=== PATIENT | male | born 1970 | race Caucasian/White ===

== ENCOUNTER 2016-12-30 05:50 | Inpatient (IN) | payer SELFPAY ==
--- NOTE | ~2016-12-30 | HP ---
History And Physical [facility] [address] [place]. [address] NAME: MARTHA JONES : 70 STATUS : ADM IN [facility]#: [id number] AGE: 46 ADM/REG DATE : 12/30/16 MR#: [id number] REPORT SERV DATE: 12/30/16 DICTATED BY: TO MARQUEZ DATE: 12/30/16 REPORT STATUS : Draft TRANSCRIBED BY: MODL DATE: 12/30/16 DATE OF ADMISSION: 12/30/2016 CHIEF COMPLAINT: A 46-year-old male traveling through the [facility] from [place] now with back pain with evidence of upper back abscess and new diagnosis diabetes. HISTORY OF PRESENT ILLNESS: The patient lives in [place] who works as a pick up truck driver. He has been apparently taking a route through this region of the country. He states about 2-1/2 weeks ago, he began to develop increasing upper back pain, felt in his muscles and in his skin. He describes it as progressive aching sometimes having a pressure, sensation of fullness and having paroxysms that feel "like a knife." He gets up to an 8/10 severity. He has had a very poor appetite and poor oral intake, other than drinking a lot of water he has excessive thirst and he also describes polyuria. He describes fevers, chills. No night sweats. He does have lightheadedness. No confusion. No other pain complaints. No headache. No chest pain. No abdominal pain. No shortness of breath. No cough. No diarrhea. No nausea or vomiting. REVIEW OF SYSTEMS: Otherwise, a 14-point review of systems was obtained and was negative. PAST MEDICAL HISTORY: Denies any, no previous history of diabetes, no heart disease, no lung disease. PAST SURGICAL HISTORY: Left hand surgery. ALLERGIES: NO KNOWN DRUG ALLERGIES. SOCIAL HISTORY: Works as a pick up truck driver. He is originally from [place]. He smokes cigarettes. Does not drink alcohol. FAMILY HISTORY: Significant for diabetes on his mother's side of the family. CURRENT MEDICATIONS: Currently denies any. PHYSICAL EXAMINATION: VITAL SIGNS: Temperature 97.6, pulse 92, blood pressure 144/92, respiratory rate 21, O2 saturation 92% on room air. GENERAL: A pleasant, cooperative male. He appears ill, but not in any particular distress. HEENT: Pupils are equal, round, and reactive to light. No conjunctival pallor. No scleral icterus. Nares are patent. Oropharynx is clear of obstruction. Dry mucous membranes. History And Physical [address] [address] NAME: MARTHA JONES : 70 STATUS : ADM IN PAT#: [id number] AGE: 46 ADM/REG DATE : 12/30/16 MR#: [id number] REPORT SERV DATE: 12/30/16 DICTATED BY: TO MARQUEZ DATE: 12/30/16 REPORT STATUS : Draft TRANSCRIBED BY: JOSH DATE: 12/30/16 NECK: Trachea midline. No thyromegaly. LYMPH: No cervical lymphadenopathy. No supraclavicular lymphadenopathy. No bilateral axillary lymphadenopathy. RESPIRATORY: Clear to auscultation to bases. No wheezes, rales, or rhonchi. Normal respiratory effort. CARDIOVASCULAR: Regular rate and rhythm. No murmurs, rubs, or gallops. No current extremity edema is appreciated. ABDOMEN: Soft, nontender, nondistended. Normal bowel sounds auscultated throughout. No organomegaly. DERMATOLOGICAL: Warm and dry extremities. No pallor. No cyanosis. The patient's upper back, more to the right hand side shows an area of fluctuance and tenderness. There is no surrounding erythema, though by skin exam, but definitely an area of pain. No heat either. PSYCHIATRIC: Normal affect. Good mood. Alert and oriented x3. LABORATORY DATA: White blood count 14.9, hemoglobin 15, hematocrit 41, platelets 324. Urine drug screen negative. Urinalysis negative for infection. Sodium 133, potassium 5.0, chloride 95, bicarb 26, BUN 28, creatinine 1.2, glucose 711. Serum acetone level is moderate. Albumin 2.3, AST 91, ALT 92, alkaline phosphatase 133, total bilirubin 0.6. ABG demonstrates a pH of 7.44, a PaCO2 of 37, a PaO2 68, and a bicarb of 25 on room air. STUDIES: A CT scan of the chest as well as upper neck abscess measuring about 7.5 cm in greatest dimension. ASSESSMENT AND PLAN: 1. Ketotic state because of new onset diabetes with severe hyperglycemia with positive acetone in the serum with no evidence of actual acidosis. Check hemoglobin A1c. Noted a diagnosis of diabetes. Seen a nursing educator consult. Start the patient initially on insulin drip IV and IV fluids. 2. Sepsis with pulse greater than 90, respiratory rate greater than 20, and white blood count of 14.9. A wound culture was able to be obtained and place on IV antibiotics. 3. Upper back abscess. Surgery consult with Dr. Huddleston was contacted. Place on IV vancomycin, IV Zosyn. 4. Acute kidney injury. Place on IV fluids and monitor. KPL/MODL To Marquez M.D. / [id number] CC: Oswald Snow M.D.
--- NOTE | ~2016-12-30 | DS ---
Discharge Summary [facility] [address] [place]. [address] NAME: MARTHA JONES : 70 STATUS : DIS IN PAT#: [id number] AGE: 46 ADM/REG DATE : 12/30/16 MR#: [id number] REPORT SERV DATE: 01/02/17 DICTATED BY: BLANCHE TREADWELL DATE: 01/01/17 REPORT STATUS : Draft TRANSCRIBED BY: MODL DATE: 01/01/17 ADMISSION DATE: 12/30/2016 DISCHARGE DATE: 01/01/2017 DISCHARGE DIAGNOSES: 1. Diabetes mellitus type 2, uncontrolled, new diagnosis A1c of 15.7. 2. Sepsis due to left upper back soft abscess, methicillin-sensitive Staphylococcus aureus positive. 3. Left upper back soft abscess. 4. Metabolic encephalopathy, resolved. CONSULTATIONS: Surgery, Dr. Kirby Owen, 12/30/2016. IMAGIN. Chest x-ray, 12/30/2016. Impression: Normal single view. 2. CT chest, 12/30/2016. Impression: Developing phlegmon/abscess in the left back region immediately superficial to the paraspinal musculature. LABORATORY DATA: Wound culture on 12/30/2016, methicillin sensitive Staph aureus. HOSPITAL COURSE: Please refer to history and physical dictated by Dr. Todd Cole on 12/30/2016 for complete admission details as well as consultation note by Dr. Owen. This patient is a 46-year-old gentleman who was driving through [facility] from [place], presented with increased back pain with evidence of upper back abscess, new diagnosis of diabetes. Imaging was obtained which is noted above. 1. Diabetes mellitus type 2, uncontrolled, new diagnosis, A1c of 15.7. The patient was admitted to the hospital. Diabetes education was obtained at this time. The patient is on Levemir/NovoLog/Glucophage. Continues to be on a sliding scale insulin level 2. The patient will be provided a prescription for above medications. He states, he will follow up with his primary care. Instructions have been given as well as a meter for the patient to monitor blood sugars and log to review with primary care. 2. Sepsis due to left upper back soft abscess. The patient was noted to have pulse of 90, respirations greater than 20. White blood cell count upon admission 14.9. Cultures were obtained. IV antibiotics were initiated and vancomycin and Zosyn. Cultures did return MSSA positive. The patient was then changed to Duricef p.o. 1000 mg p.o. twice daily. White count at this time is 10.8; respirations are 18, pulse is 79. 3. Left upper back soft tissue abscess. As noted above the patient had complaints of upper back pain. Imaging was obtained. Surgical consult was also obtained. The patient was evaluated and taken to surgery by Dr. Owen on 12/30/2016. At that time, he underwent an incision and drainage of left upper back. Care has been discussed with the patient regarding wound care. The patient did state an understanding. He will follow up with his primary care in one to two weeks. 4. Metabolic encephalopathy. The patient was confused upon arrival, this did clear within 24 hours. The patient is oriented to person, place, and time at this time. Discharge Summary [address] [address] NAME: MARTHA JONES : 70 STATUS : DIS IN [facility]#: [id number] AGE: 46 ADM/REG DATE : 12/30/16 MR#: [id number] REPORT SERV DATE: 01/02/17 DICTATED BY: BLANCHE TREADWELL DATE: 01/01/17 REPORT STATUS : Draft TRANSCRIBED BY: JOSH DATE: 01/01/17 DISCHARGE PLANNING: The patient will be discharged to return home. Medications will be provided. He has been advised on wound care. He will follow up with primary care physician in one week. DISCHARGE MEDICATIONS: 1. Duricef 1000 mg one p.o. twice daily. 2. NovoLog sliding scale level #2. 3. NovoLog 7 units subcu with meals. 4. Glucophage 1000 mg p.o. before breakfast and supper. 5. Levemir 20 units subcu twice daily. This discharge took greater than 30 minutes. /JOSH Blanche Treadwell NP / [id number] CC: Oswald Snow M.D.
--- NOTE | ~2016-12-30 | CN ---
Consultation Report [facility] [address] [place]. [address] NAME: MARTHA JONES : 70 STATUS : ADM IN [facility]#: [id number] AGE: 46 ADM/REG DATE : 12/30/16 MR#: [id number] REPORT SERV DATE: 12/30/16 DICTATED BY: KIRBY OWEN DATE: 12/30/16 REPORT STATUS : Draft TRANSCRIBED BY: MODL DATE: 12/30/16 SURGICAL CONSULTATION NOTE DATE OF CONSULTATION: 12/30/2016 REASON FOR CONSULTATION: Consultations requested regarding back abscess. 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 He is from [place]. He was found by the police wandering the streets. Initially thought that he was intoxicated. The patient was finally able to tell them that he had diabetes, he was quite altered, and was taken to the emergency room for further evaluation and management. There he was found to be septic with a white count of 14.9. He was febrile. He was tachycardic. He has a back abscess. Surgery was consulted for evaluation and management of the abscess. REVIEW OF SYSTEMS: Unable to assess. PAST MEDICAL HISTORY: Diabetes. Otherwise, unable to assess. MEDICATIONS: Unable to assess. ALLERGIES: UNABLE TO ASSESS. PAST SURGICAL HISTORY: Unable to assess. FAMILY HISTORY: Unable to assess. SOCIAL HISTORY: The patient is from [place]. Wallisian may not be his first language. He is a box truck owner operator. PHYSICAL EXAMINATION: VITAL SIGNS: Temperature is 102.2, heart rate 109, blood pressure 149/74. GENERAL: The patient is altered. He is lethargic. He is only able to answer simple questions and he answers incompletely. HEENT: Normocephalic, atraumatic. Nasopharynx and oropharynx are clear. NECK: Supple. LUNGS: Clear to auscultation. Respirations are nonlabored. HEART: Regular rate and rhythm. ABDOMEN: Obese. SKIN: He has a large abscess in his left mid back. It is draining purulent material. The area of induration is approximately 8 to 10 cm in diameter. LABORATORY DATA: Were reviewed. Of note, potassium is 5. White count 14.9, hematocrit is 41. Glucose was 711 at 3 o'clock in the morning. Consultation Report [facility] [address] [address] NAME: MARTHA JONES : 70 STATUS : ADM IN [facility]#: [id number] AGE: 46 ADM/REG DATE : 12/30/16 MR#: [id number] REPORT SERV DATE: 12/30/16 DICTATED BY: KIRBY OWEN DATE: 12/30/16 REPORT STATUS : Draft TRANSCRIBED BY: MODL DATE: 12/30/16 ASSESSMENT AND PLAN: Mr. Jones is a 46-year-old man with hyperosmolar state and hyperglycemia, sepsis, and a back abscess. Additionally, he has metabolic encephalopathy and he is altered. He will need management of his abscess. He will undergo incision and drainage of this in the operating room this afternoon. This was explained to the patient of unclear about his level of comprehension at this time. It is probably minimal. Assessment and plan has been discussed with the attending physician, Dr. Owen, who is in agreement at this time. DICTATED BY: Ifrah Ronquillo MD [facility]/JOSH Kirby Owen M.D. / [id number] CC: Kirby Owen M.D.
--- NOTE | ~2016-12-30 | OP ---
Record Of Operation [facility] [address] [place]. [address] NAME: MARTHA JONES : 70 STATUS : ADM IN [facility]#: [id number] AGE: 46 ADM/REG DATE : 12/30/16 MR#: [id number] REPORT SERV DATE: 12/30/16 DICTATED BY: KIRBY OWEN DATE: 12/30/16 REPORT STATUS : Draft TRANSCRIBED BY: MODL DATE: 12/30/16 DATE OF PROCEDURE: 12/30/2016 SURGEON: Kirby Owen M.D. RESIDENT: Ifrah Ronquillo MD. PREOPERATIVE DIAGNOSES: 1. Sepsis. 2. Left upper back abscess. POSTOPERATIVE DIAGNOSES: 1. Sepsis. 2. Left upper back abscess. PROCEDURE: Incision and drainage of left upper back abscess. ANESTHESIA: General endotracheal anesthesia. IV FLUIDS: 700. ESTIMATED BLOOD LOSS: 5. URINE OUTPUT: 550. SPECIMEN: Abscess drainage for culture and sensitivity. COMPLICATIONS: None apparent. INDICATIONS: Mr. Jones is a gentleman who presented to the ER secondary to altered mental status. He was found to be septic. He had a draining lesion on his left upper back. He was offered incision and drainage of this secondary to altered mental status, so we proceeded under emergent consent. PROCEDURE IN DETAIL: The patient was brought to the operating room. After ensuring the appropriate documents were secured on the chart, he was intubated on the stretcher and then placed prone on the operative table. He was monitored by the Anesthesia Service throughout the procedure. The upper back was prepped and draped in the usual sterile fashion and an appropriate time-out procedure was completed wherein the patient, procedure, site, positioning, allergies, equipment, and administration of antibiotics were verified prior to beginning. We made an incision along Teresita line over the area that was draining. A pocket of pus was encountered. This was drained. It seemed to be coming from an inclusion cyst, the wall of which was removed from the surrounding tissues. There were several projections of pus that were seeping into the surrounding tissues. This was irrigated and packed with iodoform gauze. Dressing was applied and the procedure was terminated. Sedation was stopped. The patient was transferred back to the stretcher once sedation was stopped and Record Of Operation [facility] [address] [place]. [address] NAME: MARTHA JONES : 70 STATUS : ADM IN PAT#: [id number] AGE: 46 ADM/REG DATE : 12/30/16 MR#: [id number] REPORT SERV DATE: 12/30/16 DICTATED BY: KIRBY OWEN DATE: 12/30/16 REPORT STATUS : Draft TRANSCRIBED BY: JOSH DATE: 12/30/16 the patient was extubated and taken to postanesthesia care unit in good condition after having tolerated the procedure well. Dr. Owen was present and scrubbed for the entirety of the surgical procedure. All counts of needles, sponges, and instruments were correct at the end of the case. DICTATED BY: MD RUBEN Cuadra/JOSH Kirby Owen M.D. / [id number] CC: Oswald Snow M.D.
[2016-12-30 02:46] LABS: BASOPHILS 0.4 %; BASOPHILS ABSOLUTE 0.06 10/3/uL (0.0-0.16); EOSINOPHILS 1.9 %; EOSINOPHILS ABSOLUTE 0.29 10/3/uL (0.0-0.53); HEMATOCRIT 41.6 % (40.0-51.0); HEMOGLOBIN 15.7 g/dL (13.6-17.8); IMMATURE GRANULOCYTES 2.7 %; LYMPHOCYTES 15.1 %; LYMPHOCYTES ABSOLUTE 2.25 10/3/uL (0.67-4.30); MEAN CORPUS HGB CONC 37.7 g/dL (32.0-36.0); MEAN CORPUSCULAR HEMOGLOB 33.8 pg (26.0-34.0); MEAN CORPUSCULAR VOLUME 89.5 fL (80-100); MEAN PLATELET VOLUME 11.4 fL (9.2-13.0); MONOCYTES 7.1 %; MONOCYTES ABSOLUTE 1.05 10/3/uL (0.21-1.20); NEUTROPHILS 72.8 %; NEUTROPHILS ABSOLUTE 10.83 10/3/uL (2.02-8.40); PLATELET COUNT 324 10/3/uL (150-400); RBC DISTRIBUTION WIDTH 13.3 % (12.0-16.0); RED CELL COUNT 4.65 10/6/uL (4.7-6.1); WHITE BLOOD CELLS 14.9 10/3/uL (4.5-10.5)
[2016-12-30 02:47] LABS: ASCORBIC ACID (UR NOT ORDER) NEG (NEG); BILIRUBIN, URINE NEGATIVE (NEG); ER URINALYSIS TAT 0 Hrs 00 Mins; KETONE, URINE NEGATIVE (NEG); LEUKOCYTE ESTERASE(NOT OR NEG (NEG); NITRITE (URINE) NEG (NEG); WBC (NOT ORDERED) (RFLEX) 1 (0-5)
[2016-12-30 02:48] LABS: MANUAL DIFF NO %
[2016-12-30 02:58] LABS: AMPHETAMINES (NOT ORD) NEG (NEG); BARBITURATES (NOT ORDERED NEG (NEG); BENZODIAZEPINES (NOT ORD) NEG (NEG); CANNABINOIDS (THC) NEG (NEG); COCAINE (NOT ORDERED) NEG (NEG); OPIATES NEG (NEG); PHENCYCLIDINE(PCP) NEG (NEG); TRICYCLICS NEG (NEG)
[2016-12-30 03:06] LABS: ATYPICAL LYMPH FEW (3-5%) (0-5%); BAND NEUTROPHILS 3 %; EOSINOPHILS 3 %; EOSINOPHILS ABSOLUTE (CALC) 0.45 10/3/uL (0.0-0.53); ER DIFF TAT 0 Hrs 24 Mins; LYMPHOCYTES 18 %; LYMPHOCYTES ABSOLUTE (CALC) 2.68 10/3/uL (0.67-4.30); MONOCYTES 9 %; MONOCYTES ABSOLUTE (CALC) 1.34 10/3/uL (0.21-1.20); NEUTROPHILS ABSOLUTE (CALC) 10.43 10/3/uL (2.02-8.40); PLATELET ESTIMATE ADQ (ADEQUATE); RBC MORPHOLOGY NORM (NORMAL); SEGMENTED NEUTROPHIL (0) 67 %; TOTAL NUCLEATED CELLS 100
[2016-12-30 03:41] LABS: ACETONE MODERATE
[2016-12-30 04:13] LABS: A/G RATIO 0.5 (0.7-1.9); ALBUMIN 2.3 G/DL (3.5-5.0); ALKALINE PHOSPHATASE 133 U/L (45-117); BUN (BLOOD UREA NITROGEN) 28 MG/DL (6-23); CALCIUM, SERUM 9.3 MG/DL (8.5-10.4); CHLORIDE, SERUM 95 MMOL/L (96-112); CO2 (CARBON DIOXIDE) 26 MMOL/L (24-34); CREATININE 1.26 MG/DL (0.70-1.30); GFR AFRICAN AMERICAN 79 ML/MIN (>=60); GFR NON AFRICAN AMERICAN 68 ML/MIN (>=60); GLOBULIN 5.1 G/DL (2.5-4.1); TOTAL BILIRUBIN 0.6 MG/DL (0-1.2); TOTAL PROTEIN 7.4 G/DL (6.0-8.5)
[2016-12-30 04:38] LABS: SODIUM, SERUM 133 MMOL/L (135-148)
[2016-12-30 04:39] LABS: GLUCOSE, SERUM 711 MG/DL (60-99); SGOT(AST) 91 U/L (5-40); SGPT(ALT) 92 U/L (5-65)
[2016-12-30] MEDS ORDERED: *DENIES (07:56)
[2016-12-30 10:31] LABS: HEMATOCRIT 38.3 % (40.0-51.0); HEMOGLOBIN 14.5 g/dL (13.6-17.8); MEAN CORPUS HGB CONC 37.9 g/dL (32.0-36.0); MEAN CORPUSCULAR HEMOGLOB 32.6 pg (26.0-34.0); MEAN PLATELET VOLUME 10.6 fL (9.2-13.0); PLATELET COUNT 271 10/3/uL (150-400); RBC DISTRIBUTION WIDTH 12.9 % (12.0-16.0); RED CELL COUNT 4.45 10/6/uL (4.7-6.1); WHITE BLOOD CELLS 14.3 10/3/uL (4.5-10.5)
[2016-12-30 10:35] LABS: MANUAL DIFF YES %; MEAN CORPUSCULAR VOLUME 86.1 fL (80-100)
[2016-12-30 10:53] LABS: CHLORIDE, SERUM 104 MMOL/L (96-112); CO2 (CARBON DIOXIDE) 27 MMOL/L (24-34); CPK 89 U/L (0-200); CREATININE 0.84 MG/DL (0.70-1.30); GFR AFRICAN AMERICAN 122 ML/MIN (>=60); GFR NON AFRICAN AMERICAN 105 ML/MIN (>=60); PARTIAL THROMBO TIME 24.1 SEC (22.5-37.2); PROTIME (NOT ORD) 13.5 SEC (12.0-14.5); SODIUM, SERUM 139 MMOL/L (135-148); TOTAL BILIRUBIN 0.9 MG/DL (0-1.2); TROPONIN I <0.02 NG/ML (<0.05); ULTRASENSITIVE TSH 0.596 MCIU/ML (0.358-3.740)
[2016-12-30 10:58] LABS: BUN (BLOOD UREA NITROGEN) 19 MG/DL (6-23); CALCIUM, SERUM 6.9 MG/DL (8.5-10.4); GLUCOSE, SERUM 381 MG/DL (60-99); POTASSIUM, SERUM 3.9 MMOL/L (3.5-5.3)
[2016-12-30 10:59] LABS: A/G RATIO 0.5 (0.7-1.9); ALBUMIN 1.9 G/DL (3.5-5.0); ALKALINE PHOSPHATASE 107 U/L (45-117); CK-MB < 0.5 NG/ML; GLOBULIN 4.1 G/DL (2.5-4.1)
[2016-12-30 11:00] LABS: EOSINOPHILS 5 %; EOSINOPHILS ABSOLUTE (CALC) 0.72 10/3/uL (0.0-0.53); LYMPHOCYTES 9 %; LYMPHOCYTES ABSOLUTE (CALC) 1.29 10/3/uL (0.67-4.30); MONOCYTES 5 %; MONOCYTES ABSOLUTE (CALC) 0.72 10/3/uL (0.21-1.20); NEUTROPHILS ABSOLUTE (CALC) 11.58 10/3/uL (2.02-8.40); PLATELET ESTIMATE ADQ (ADEQUATE); SEGMENTED NEUTROPHIL (0) 81 %; TOTAL NUCLEATED CELLS 100
[2016-12-30 11:01] LABS: RBC MORPHOLOGY NORM (NORMAL)
[2016-12-30 11:16] LABS: SGOT(AST) 103 U/L (5-40); SGPT(ALT) 157 U/L (5-65)
[2016-12-30 16:04] LABS: CHLORIDE, SERUM 107 MMOL/L (96-112); CO2 (CARBON DIOXIDE) 29 MMOL/L (24-34); CREATININE 0.85 MG/DL (0.70-1.30); GFR AFRICAN AMERICAN 121 ML/MIN (>=60); GFR NON AFRICAN AMERICAN 104 ML/MIN (>=60); SODIUM, SERUM 144 MMOL/L (135-148)
[2016-12-30 18:15] LABS: BUN (BLOOD UREA NITROGEN) 18 MG/DL (6-23); GLUCOSE, SERUM 234 MG/DL (60-99); POTASSIUM, SERUM 4.1 MMOL/L (3.5-5.3)
[2016-12-30 18:16] LABS: PHOSPHORUS, SERUM 3.7 MG/DL (2.5-4.5)
[2016-12-30 19:37] LABS: BE (BASE EXCESS) 1.3 MEQ/L (0 +/- 2.5); CARBOXYHEMOGLOBIN 2.1 % (0-3); HCO3 (ACTUAL BICARBONATE) 25.1 MEQ/L (23-27); HEMOBLOGIN CONTENT 14.8 G/DL (14-18); INSTRUMENT SERIAL # 8087; METHEMOGLOBIN 0.3 % (0-3); PCO2 (CO2 TENSION) 38 MMHG (35-45); PO2 (O2 TENSION) 68 MMHG (79-93); SAMPLE Arterial; pH 7.44 (7.37-7.43)
[2016-12-31 04:24] LABS: HEMATOCRIT 37.3 % (40.0-51.0); HEMOGLOBIN 12.9 g/dL (13.6-17.8); MEAN CORPUSCULAR HEMOGLOB 30.9 pg (26.0-34.0); MEAN PLATELET VOLUME 10.5 fL (9.2-13.0); PLATELET COUNT 230 10/3/uL (150-400); RBC DISTRIBUTION WIDTH 13.4 % (12.0-16.0); RED CELL COUNT 4.18 10/6/uL (4.7-6.1)
[2016-12-31 04:25] LABS: MANUAL DIFF YES %; MEAN CORPUS HGB CONC 34.6 g/dL (32.0-36.0); MEAN CORPUSCULAR VOLUME 89.2 fL (80-100)
[2016-12-31 04:50] LABS: BUN (BLOOD UREA NITROGEN) 16 MG/DL (6-23); CALCIUM, SERUM 7.5 MG/DL (8.5-10.4); CHLORIDE, SERUM 106 MMOL/L (96-112); CO2 (CARBON DIOXIDE) 27 MMOL/L (24-34); CREATININE 0.76 MG/DL (0.70-1.30); GFR AFRICAN AMERICAN 127 ML/MIN (>=60); GFR NON AFRICAN AMERICAN 109 ML/MIN (>=60); SODIUM, SERUM 141 MMOL/L (135-148)
[2016-12-31 05:01] LABS: GLUCOSE, SERUM 344 MG/DL (60-99); PHOSPHORUS, SERUM 2.2 MG/DL (2.5-4.5); POTASSIUM, SERUM 4.1 MMOL/L (3.5-5.3)
[2016-12-31 05:05] LABS: BAND NEUTROPHILS 1 %; BASOPHILS 1 %; BASOPHILS ABSOLUTE (CALC) 0.14 10/3/uL (0.0-0.16); EOSINOPHILS 4 %; EOSINOPHILS ABSOLUTE (CALC) 0.56 10/3/uL (0.0-0.53); IMMATURE GRANS ABSOLUTE (CALC) 0.28 10/3/uL (0.0-0.11); LYMPHOCYTES 20 %; METAMYELOCYTES 2 %; MONOCYTES 4 %; MONOCYTES ABSOLUTE (CALC) 0.56 10/3/uL (0.21-1.20); NEUTROPHILS ABSOLUTE (CALC) 9.66 10/3/uL (2.02-8.40); SEGMENTED NEUTROPHIL (0) 68 %; TOTAL NUCLEATED CELLS 100
[2016-12-31 05:06] LABS: PLATELET ESTIMATE ADQ (ADEQUATE); RBC MORPHOLOGY NORM (NORMAL)
[2016-12-31 10:20] LABS: BUN (BLOOD UREA NITROGEN) 17 MG/DL (6-23); CALCIUM, SERUM 7.1 MG/DL (8.5-10.4); CHLORIDE, SERUM 102 MMOL/L (96-112); CO2 (CARBON DIOXIDE) 26 MMOL/L (24-34); CREATININE 0.74 MG/DL (0.70-1.30); GFR AFRICAN AMERICAN 128 ML/MIN (>=60); GFR NON AFRICAN AMERICAN 111 ML/MIN (>=60); SODIUM, SERUM 137 MMOL/L (135-148)
[2016-12-31 10:21] LABS: POTASSIUM, SERUM 4.2 MMOL/L (3.5-5.3)
[2016-12-31 10:22] LABS: GLUCOSE, SERUM 366 MG/DL (60-99)
[2017-01-01 04:51] LABS: HEMOGLOBIN 12.8 g/dL (13.6-17.8); MANUAL DIFF YES %; MEAN CORPUS HGB CONC 34.6 g/dL (32.0-36.0); MEAN CORPUSCULAR HEMOGLOB 30.4 pg (26.0-34.0); MEAN CORPUSCULAR VOLUME 87.9 fL (80-100); MEAN PLATELET VOLUME 10.3 fL (9.2-13.0); PLATELET COUNT 248 10/3/uL (150-400); RBC DISTRIBUTION WIDTH 13.4 % (12.0-16.0); RED CELL COUNT 4.21 10/6/uL (4.7-6.1); WHITE BLOOD CELLS 10.8 10/3/uL (4.5-10.5)
[2017-01-01 06:14] LABS: CALCIUM, SERUM 7.7 MG/DL (8.5-10.4); CHLORIDE, SERUM 105 MMOL/L (96-112); CO2 (CARBON DIOXIDE) 24 MMOL/L (24-34); CREATININE 0.53 MG/DL (0.70-1.30); GFR AFRICAN AMERICAN 147 ML/MIN (>=60); GFR NON AFRICAN AMERICAN 127 ML/MIN (>=60); POTASSIUM, SERUM 3.6 MMOL/L (3.5-5.3); SODIUM, SERUM 140 MMOL/L (135-148)
[2017-01-01 06:16] LABS: BUN (BLOOD UREA NITROGEN) 13 MG/DL (6-23); GLUCOSE, SERUM 132 MG/DL (60-99)
[2017-01-01 06:32] LABS: BAND NEUTROPHILS 10 %; EOSINOPHILS 4 %; EOSINOPHILS ABSOLUTE (CALC) 0.43 10/3/uL (0.0-0.53); LYMPHOCYTES 12 %; MONOCYTES 5 %; MONOCYTES ABSOLUTE (CALC) 0.54 10/3/uL (0.21-1.20); NEUTROPHILS ABSOLUTE (CALC) 8.53 10/3/uL (2.02-8.40); PLATELET ESTIMATE ADQ (ADEQUATE); SEGMENTED NEUTROPHIL (0) 69 %; TOTAL NUCLEATED CELLS 100
[2017-01-01 06:34] LABS: RBC MORPHOLOGY NORM (NORMAL)
[2017-01-01] MEDS ORDERED: NOVOLOG SC ×2 (16:06→16:07)
[2017-01-01] MEDS ORDERED: DURICEF PO (16:06)
[2017-01-01] MEDS ORDERED: GLUCOPHAGE1000 MG PO (16:07)
[2017-01-01] MEDS ORDERED: LEVEMIR SC (16:08)
== END 2017-01-01 21:17 | disposition home or self-care (01) | DRG 853 ==
LOC: ER 05:50 → IMCU 05:55 → 4EA 12-31 15:58
PROVIDERS: Hospitalist; Internal Medicine; Nurse Practitioner Acute Care; Specialist
PROC: 0J970ZZ Drainage of Back Subcutaneous Tissue and Fascia, Open Approach (ICD-10-PCS; principal; 2016-12-30 12:45)
DX: A41.9 Sepsis, unspecified organism (principal); G93.41 Metabolic encephalopathy; N17.9 Acute kidney failure, unspecified; L02.212 Cutaneous abscess of back [any part, except buttock and flank]; E11.65 Type 2 diabetes mellitus with hyperglycemia
CPT/HCPCS: 36600; 71010; 71250; 80048; 80053; 80202; 80305; 81001; 82009; 82550; 82553; 82805; 82962; 83036; 83605; 83735; 84100; 84443; 84484; 85025; 85610; 85730; 87015; 87070; 87075; 87077; 87102; 87116; 87186; 87205; 87641; 93005; 96365; 96368; 99285; A9270-GY; J0330; J2250; J2370; J2405; J2543; J3010; J3370